=== PATIENT | male | born 1995 | race Caucasian/White ===

== ENCOUNTER → 2025-05-04 | Outpatient (CLI) | payer BC, SELFPAY ==
[2025-05-04 15:51] LABS: Hematocrit 44.7 % (40-54); Hemoglobin 15.8 g/dL (13.0-16.5); Immature Granulocytes Count 0.040 X10^3/uL (0.0-0.0); Mean Corp Hgb Conc 35.3 g/dL (32-36); Mean Corpuscular Volume 87.1 fL (80-94); Mean Platelet Vol. 10.2 fl (6.2-12.0); NRBC Flagged by Analyzer 0 % (0-5); Platelet Count 207 K/mm3 (150-450); RBC Distribution Width CV 11.9 % (11.6-14.6); RBC Distribution Width SD 38.3 fl (35.1-43.9); Red Blood Count 5.13 M/mm3 (4.6-6.2); White Blood Count 7.6 K/mm3 (4.4-11.0)
[2025-05-04 16:53] LABS: AST(SGOT) 40 U/L (<=37); Alanine Aminotransfer ALT/SGPT 78 U/L (<=46); Albumin, Serum 4.8 g/dL (3.5-5.0); Alkaline Phosphatase 81 U/L (40-129); Anion Gap 15 (5-15); BUN 15 mg/dL (4-19); BUN/Creat Ratio 17.4 RATIO (10-20); Calcium,Total 9.7 mg/dL (7.6-11.0); Carbon Dioxide 23.6 mmol/L (21.0-32.0); Chloride 99 mmol/L (98-108); Globulin 2.8 g/dL (2.2-4.2); Glucose 99 mg/dL (70-99); Potassium 3.3 mmol/L (3.3-5.1); Vitamin D,25 Hydroxy 23.7 ng/mL (30-100)
[2025-05-08 14:49] LABS: CORTISOL PM 15.70 ug/dL (2.68-10.50)
== END | disposition home or self-care (01) ==
LOC: MTLAB 12:47
PROVIDERS: PCP Family Medicine; Referring Provider Family Medicine; Visit Provider Family Medicine
DX: R53.83 Other fatigue (principal)
CPT/HCPCS: 36415; 80053; 81050; 82306; 82530; 82533; 84443; 85025

== ENCOUNTER 2025-08-09 00:31 | Emergency (ER) | payer BC, SELFPAY ==
[2025-08-09 00:33] VITALS: BP 154/90; PULSE 100; RESP 18; TEMP 36.9; O2SAT 98; BMI 19.5
--- NOTE | 2025-08-09 00:56 | EDS_ITS ---
HPI History of Present Illness Chief Complaint: Mental Health Informant: patient and spouse/S.O. Narrative Narrative: Patient is a 29-year-old male who states he has struggled with depression and anxiety. He states he has recently been going to counseling and has been learning and practicing methods to help control his symptoms. This evening he reportedly got into an argument with his and [id number]. His states that she is used to him being aggressive and angry and now he is more calm and collected and she states this is not his baseline. Because of this she wanted him evaluated in the ER. The patient states he is acting this way because he has now learned coping mechanisms and has been employing them. He denies any homicidal or suicidal ideation. He states he is mainly in the ER just to appease [facility] Home Medications ?Medication ?Instructions ?Recorded ?Last Taken ?Type NK 08/09/25 Unknown History Allergy/AdvReac Type Severity Reaction Status Date / Time No Known Allergies Allergy Verified 08/09/25 00:32 Family History (Updated 09/27/23 @ 11:23 by Gwen Peace) Father Arthritis Grandfather CVA (cerebral vascular accident) Heart disease Diabetes Grandmother Cancer Lung disease Surgical History (Updated 09/27/23 @ 11:32 by Gwen Peace) Ascended testicle History of tonsillectomy Social History (Updated 09/27/23 @ 11:24 by Gwen Peace) Smoking Status: Current every day smoker tobacco type: e-cigarettes alcohol intake: current alcohol intake frequency: holidays/special occasions only Alcohol type: hard liquor ROS ROS ED Constitutional Constitutional ED: Denies chills or fever(s) ENT ENT ED: Denies sore throat Cardiovascular Cardiovascular: Denies chest pain Respiratory/Chest Respiratory/Chest: Denies cough or dyspnea Gastrointestinal Gastrointestinal: Denies abdominal pain, diarrhea, nausea or vomiting Musculoskeletal Musculoskeletal: Denies myalgias Integumentary Denies rash Neurologic Neurologic: Denies headache(s) Psychiatric Psychiatric: Denies suicidal ideation or suicidal thoughts EXAM Physical Exam Const Vital Signs: 08/09/25 00:33 08/09/25 01:00 Temperature 98.5 F 98.5 F Temperature Source Oral Pulse Rate 100 90 Respiratory Rate 18 18 Blood Pressure 154/90 H 154/90 H Blood Pressure Mean 111 111 Pulse Ox 98 100 Oxygen Delivery Method Room Air Positive well nourished and well developed General Appearance ED: well developed; Negative for pallor HEENT HEENT Narrative: Normal cephalic atraumatic Eyes PERRL and EOMs intact bilaterally General Eye ED: Negative for scleral icterus Neck supple Resp normal respiratory effort and clear to auscultation bilaterally Cardio regular rate and regular rhythm Extremity normal to inspection Neuro oriented x3, CN's II-XII intact bilaterally and no sensory deficits noted Sensorium / Orientation: alert Motor Exam: strength 5/5 throughout Psych mental status grossly normal Psych Narrative: No homicidal or suicidal ideation No obvious signs of deisy or flight of ideas No auditory or visual hallucinations reported Skin no rashes or lesions noted General Skin Exam: Negative for jaundice or pallor MDM MDM MDM Narrative Medical decision making narrative: Patient arrived to the ER mildly hypertensive otherwise with stable vitals. He reported he is only in the ER to appease his . His states that she is used to him being more aggressive and angry and is concerned about his depressed or mellow affect at this time. The patient had reported he is this way because he is now learning to employ the coping mechanisms that he has learned through counseling. He states that he does not have homicidal or suicidal ideation. He also is well-groomed and showing that he is caring for himself in the community. At this time the patient is awake alert and oriented he is competent to make his own decisions he is not homicidal or suicidal and he is demonstrating that he is caring for himself in the community and providing as he has a stable job. Based on these observations and the fact that he does not want evaluation I cannot perform any type of further workup or for psychiatric evaluation of him at this time. I feel he does not warrant psychiatric evaluation either as he is not homicidal or suicidal or showing signs of deisy. The patient was advised to continue his outpatient counseling therapy and keep employing his coping mechanisms as they seem to be working as he was able to de-escalate from a stressful situation earlier this evening. Therefore without need for psychiatric valuation and history and exam showing no sign of potential infection or trauma he is otherwise safe for discharge History & Record Review Discussion w/independent historian: Patient and Significant other Discharge Plan Triage Chief Complaint: Mental Health ED Provider: Benjamin Tuttle Dx/Rx/DC Orders Clinical Impression: Mood disorder Instructions: Understanding Mood Disorders Prescriptions: No Action NK Primary Care Provider: Rocky Taylor Referrals: Rocky Taylor MD [Primary Care Provider, Family Practice] Activity Restrictions/Additional Instructions: Please continue to follow-up with your therapist as an outpatient and continue to perform your therapy techniques to help calm bouts of anxiety and depression. Return to the ER should you have any further concerns Print Language: Citizen Of [place] Disposition Disposition: Home, Self Care Discharge Date/Time: 08/09/25 01:06
[2025-08-09 01:00] VITALS: BP 154/90; PULSE 90; RESP 18; TEMP 36.9; O2SAT 100
== END 2025-08-09 01:06 | disposition home or self-care (01) ==
LOC: ED 01:03
PROVIDERS: Emergency Provider Emergency Medicine; PCP Family Medicine; Visit Provider Emergency Medicine
DX: F39 Unspecified mood [affective] disorder (principal); F17.290 Nicotine dependence, other tobacco product, uncomplicated
CPT/HCPCS: 99282; A4216

== ENCOUNTER 2025-08-11 14:18 | Emergency (ER) | payer BC, SELFPAY ==
[2025-08-11 14:18] VITALS: BP 130/100; PULSE 71; RESP 20; TEMP 36.4; O2SAT 100; BMI 18.8
--- NOTE | 2025-08-11 14:42 | EX.ED.VIS.PS ---
HPI HPI - Psych History of Present Illness Chief Complaint: Suicidal Narrative Narrative: 29-year-old male presents pixel by police for suicidal ideation. It was reported that last night he was talking to a rock, thinking that it was his father. He has knives at home, and reportedly he stated that he would kill himself and use his knives if they were going to try and take them away. He states that his called EMS/the police today because of the way he was acting. He states that he started Seroquel last night to help him sleep. This was written by his primary care provider. He states that he wants to get his head straight for his family sake. He presents with reported psychosis and suicidal ideation. He does admit to smoking marijuana daily, and to vaping. PFSH PFSH Home Medications ?Medication ?Instructions ?Recorded ?Last Taken ?Type NK 08/09/25 Unknown History Allergy/AdvReac Type Severity Reaction Status Date / Time No Known Allergies Allergy Verified 08/11/25 14:18 Family History Father Arthritis Grandfather CVA (cerebral vascular accident) Heart disease Diabetes Grandmother Cancer Lung disease Surgical History Ascended testicle History of tonsillectomy Social History (Updated 08/11/25 @ 15:11 by Gena Cardenas) household members: spouse Smoking Status: Current every day smoker tobacco type: e-cigarettes alcohol intake: current alcohol intake frequency: holidays/special occasions only Alcohol type: hard liquor ROS ROS ED ROS Narrative Review of systems positive for psychosis. Reported suicidal ideation. Patient denies any somatic symptoms. Does endorse insomnia and unable to sleep. EXAM Physical Exam Narrative Exam Narrative: Afebrile. Vital signs noted. Nontoxic-appearing. Cardiovascular examination regular rate and rhythm. Lungs are clear to auscultation bilaterally. Abdomen is soft and nontender with positive bowel sounds. Currently cooperative. Psychiatric examination shows intermittent hostility with cursing but no current internal stimulation or active hallucinations. Const Vital Signs: 08/11/25 14:18 Temperature 97.5 F L Temperature Source Temporal Pulse Rate 71 Respiratory Rate 20 H Blood Pressure 130/100 H Blood Pressure Mean 110 Pulse Ox 100 Oxygen Delivery Method Room Air MDM MDM MDM Narrative Medical decision making narrative: No feel differential diagnosis is applicable in this case. He is here under her 72-hour hold for evaluation for suicidal ideation. 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 I reviewed his medical clearance labs and he has normal white count of 6.2 with hemoglobin 15.2, hematocrit 42.0, platelet count normal at 205. CMP is grossly unremarkable with normal LFTs. Ethyl alcohol is negative at less than 10.1. While his urine for drugs of abuse is pending, I feel it is probably most likely positive for cannabinoids as he admits to smoking marijuana every day. I feel he is medically cleared for evaluation by crisis/case management. I did review the urine for drugs of abuse which is presumptively positive for cannabinoids and amphetamines as well. At this point in time, he is medically cleared for evaluation for possible placement at a psychiatric facility. Patient did request medication for anxiety. He was administered Ativan 1 mg orally. I was informed by case management that he has been accepted at [facility] for Psychiatry. Disposition is transferred in stable condition. History & Record Review Discussion w/independent historian: Patient Additional record(s) reviewed:: Prior ED visit (Seen 2 days ago and had refused evaluation at that time.) Lab Data Attestation: I reviewed the patient's lab results. Labs: Laboratory Results - last 24 hr 08/11/25 08/11/25 14:44 16:28 WBC 6.2 RBC 4.94 Hgb 15.2 Hct 42.0 MCV 85.0 MCH 30.8 MCHC 36.2 H RDW Std Deviation 35.3 RDW Coeff of Soledad 11.4 L Plt Count 205 MPV 9.4 Immature Gran % (Auto) 0.200 Neut % (Auto) 55.6 Lymph % (Auto) 35.2 [place] % (Auto) 7.5 Eos % (Auto) 1.0 Baso % (Auto) 0.5 Absolute Neuts (auto) 3.5 Absolute Lymphs (auto) 2.19 Nucleated RBC % 0 Sodium 139 Potassium 3.7 Chloride 103 Carbon Dioxide 26.3 Anion Gap 10 BUN 12 Creatinine 0.97 Estim Creat Clear Calc 81.85 Est GFR (MDRD) Non-Af 109 BUN/Creatinine Ratio 12.0 Glucose 92 Calcium 9.0 Total Bilirubin 0.64 AST 28 ALT 31 Alkaline Phosphatase 75 Total Protein 6.8 Albumin 4.4 Globulin 2.3 Albumin/Globulin Ratio 1.9 Urine Opiates Screen NEGATIVE U Buprenorphine Qual NEGATIVE Ur Oxycodone Screen NEGATIVE Urine Methadone Screen NEGATIVE Urine Fentanyl Screen NEGATIVE Ur Barbiturates Screen NEGATIVE Ur Phencyclidine Scrn NEGATIVE Ur Amphetamines Screen PRESUMPTIVE POSITIVE U Benzodiazepines Scrn NEGATIVE Urine Cocaine Screen NEGATIVE U Cannabinoids Screen PRESUMPTIVE POSITIVE Ethyl Alcohol < 10.1 Discharge Plan Triage Chief Complaint: Suicidal ED Provider: Willis Rosado Dx/Rx/DC Orders Clinical Impression: Psychosis, Suicidal ideation, Anxiety Prescriptions: No Action NK Primary Care Provider: Rocky Taylor Referrals: Rocky Taylor MD [Primary Care Provider, Family Practice] Print Language: Burundian Disposition Disposition: Psychiatric Hospital or Unit Discharge Location: [facility]
[2025-08-11 15:16] LABS: Hematocrit 42.0 % (40-54); Hemoglobin 15.2 g/dL (13.0-16.5); Immature Granulocytes Count 0.010 X10^3/uL (0.0-0.0); Mean Corp Hgb Conc 36.2 g/dL (32-36); Mean Corpuscular Volume 85.0 fL (80-94); Mean Platelet Vol. 9.4 fl (6.2-12.0); NRBC Flagged by Analyzer 0 % (0-5); Platelet Count 205 K/mm3 (150-450); RBC Distribution Width CV 11.4 % (11.6-14.6); RBC Distribution Width SD 35.3 fl (35.1-43.9); Red Blood Count 4.94 M/mm3 (4.6-6.2); White Blood Count 6.2 K/mm3 (4.4-11.0)
[2025-08-11 15:56] LABS: AST(SGOT) 28 U/L (<=37); Alanine Aminotransfer ALT/SGPT 31 U/L (<=46); Albumin, Serum 4.4 g/dL (3.5-5.0); Alcohol, Blood (Medical)-Serum < 10.1 mg/dL (<=10.0); Alkaline Phosphatase 75 U/L (40-129); Anion Gap 10 (5-15); BUN 12 mg/dL (4-19); BUN/Creat Ratio 12.0 RATIO (10-20); Calcium,Total 9.0 mg/dL (7.6-11.0); Carbon Dioxide 26.3 mmol/L (21.0-32.0); Chloride 103 mmol/L (98-108); Estimated Creatinine Clearance 81.85 ml/min (50-250); Globulin 2.3 g/dL (2.2-4.2); Glucose 92 mg/dL (70-99); Potassium 3.7 mmol/L (3.3-5.1)
[2025-08-11] MEDS: Nicotine 4mg Gum (PBKC) 4 MG GUM PO (16:05)
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
[2025-08-11 17:03] LABS: Barbiturate Urine NEGATIVE (< 200 ng/mL); Benzodiazepine Urine NEGATIVE (< 200 ng/mL); PCP Urine NEGATIVE (< 25 ng/mL); THC Urine PRESUMPTIVE POSITIVE (< 50 ng/mL)
--- NOTE | 2025-08-11 19:14 | CM.ED ---
Social Work SW contacted [facility], stated male bed was available. Referral sent. Patient was declined, [facility] stated that patient did not have valid insurance. explained that [facility] was able to verify insurance, [facility] continued to decline stating they could not get insurance to validate. [facility] contacted, male bed available, referral sent. Mary Jane Muir, SHIP JOINER, CLINICAL QUALITY ASSURANCE ASSOCIATE
--- NOTE | 2025-08-11 19:33 | PCA ---
PT ACCEPTED AT [facility]. CALLED TO SET UP 20/05 PSYCH CAR RIDE. WILL CALL BACK
[2025-08-11 21:35] VITALS: BP 115/54; PULSE 83; RESP 16; O2SAT 100
--- NOTE | 2025-08-11 21:46 | CM.ED ---
Social Work Patient was accepted at [facility], will be going to the intensive unit. Patient was admitted by Johnna, N2N [phone]. updated on accepting facility and transportation time. Patient sleeping at this time and not able to be updated. Mary Jane Muir, PACKAGING DESIGN ENGINEER, MONKEY BREEDER
[2025-08-11 22:13] VITALS: BP 115/54; PULSE 83; RESP 16; TEMP 36.8; O2SAT 100
== END 2025-08-11 23:22 ==
PROVIDERS: Emergency Provider Emergency Medicine; PCP Family Medicine; Visit Provider Emergency Medicine
DX: F29 Unspecified psychosis not due to a substance or known physiological condition (principal); R45.851 Suicidal ideations; F41.9 Anxiety disorder, unspecified; F17.290 Nicotine dependence, other tobacco product, uncomplicated
CPT/HCPCS: 80053; 80307; 82077; 85025; 99284

== ENCOUNTER 2025-08-23 18:41 | Emergency (ER) | payer BC, SELFPAY ==
[2025-08-23 18:43] VITALS: BP 150/89; PULSE 100; RESP 16; TEMP 36.8; O2SAT 100; BMI 19.9
--- NOTE | 2025-08-23 19:45 | EX.ED.VIS.PS ---
HPI HPI - Psych History of Present Illness Chief Complaint: Mental Health Narrative Narrative: 29-year-old male presents with his because of psychosis. She states that she took him to the crisis center today, and they drove him here for medical clearance as they felt he needed psychiatric admission for medication adjustment. Patient states that he is trying to get better, but he is frustrated because he feels the only time that he can be out of his 's site is if he is admitted to a psychiatric facility. He denies any suicidal ideation. He told triage that he needed his medication adjusted. PFSH PFSH Home Medications ?Medication ?Instructions ?Recorded ?Last Taken ?Type bupropion HCl 150 mg 24 hr tablet, 150 mg PO DAILY 08/23/25 08/23/25 History extended release quetiapine 25 mg tablet 25 mg PO QHS 08/23/25 08/22/25 History zolpidem 5 mg tablet 5 mg PO QHS 08/23/25 08/22/25 History Allergy/AdvReac Type Severity Reaction Status Date / Time No Known Allergies Allergy Verified 08/23/25 18:43 Family History Father Arthritis Grandfather CVA (cerebral vascular accident) Heart disease Diabetes Grandmother Cancer Lung disease Surgical History Ascended testicle History of tonsillectomy Social History household members: spouse Smoking Status: Current every day smoker tobacco type: e-cigarettes alcohol intake: current alcohol intake frequency: holidays/special occasions only Alcohol type: hard liquor ROS ROS ED ROS Narrative Denies suicidal ideation. States he is here for his psychosis. Review of Systems ROS Unobtainable: due to mental condition EXAM Physical Exam Narrative Exam Narrative: Afebrile. Vital signs noted. Nontoxic-appearing. Cardiovascular examination regular rate and rhythm. Lungs are clear to auscultation bilaterally. Abdomen is soft and nontender with positive bowel sounds. Neurological examination nonfocal nonlateralizing. Psychiatric examination does show mild flight of ideas with patient being mildly tangential. Const Vital Signs: 08/23/25 18:43 Temperature 98.3 F Temperature Source Oral Pulse Rate 100 Respiratory Rate 16 Blood Pressure 150/89 H Blood Pressure Mean 109 Pulse Ox 100 Oxygen Delivery Method Room Air MDM MDM MDM Narrative Medical decision making narrative: I do not feel differential diagnosis is applicable. Patient is here for medical clearance for psychiatric placement according to the crisis center. Medical screening labs were obtained. I did review his prior ED visits. He had been seen on 08/09/2025, then again by myself on 1014. As he had been discharged previously then sent to [facility] for psychiatry, medical clearance labs will be obtained for placement again or at least reevaluation by the crisis center. I reviewed his laboratory work and he has normal white count of 6.7, hemoglobin normal at 15.3, hematocrit 42.5, platelet count normal at 194. Glucose slightly elevated 110 with a normal anion gap of 11, sodium and potassium are normal. LFT shows ALT slightly elevated at 67 which I think is nonspecific. Ethanol level is negative. Urine for drugs of abuse is negative as well. Patient starting to have anxiety according to his . He is acceptable to taking oral medication. While I feel he is medically cleared for evaluation by crisis, they had already evaluated him and were recommending placement and sent him in for medical clearance labs. He was given Ativan 1 mg orally. He is currently awaiting placement in a psychiatric facility. In discussion with the crisis counselor, it was felt that he should not be allowed to be discharged as he has made violent threats against his , and is having increased psychosis with religiosity stating that he has 10 blessings that he wanted to but still up on her. Patient will be signed out to the oncoming physician, Dr. Benjamin Tuttle to ensure transfer as he has been accepted at [facility]. Patient is in stable condition. History & Record Review Discussion w/independent historian: Patient and Family () Additional record(s) reviewed:: Prior ED visit Lab Data Attestation: I reviewed the patient's lab results. Labs: Laboratory Results - last 24 hr 08/23/25 08/23/25 19:46 20:20 WBC 6.7 RBC 4.94 Hgb 15.3 Hct 42.5 MCV 86.0 MCH 31.0 MCHC 36.0 RDW Std Deviation 36.3 RDW Coeff of Soledad 11.7 Plt Count 194 MPV 9.7 Immature Gran % (Auto) 0.700 Neut % (Auto) 69.6 Lymph % (Auto) 20.8 [place] % (Auto) 8.1 Eos % (Auto) 0.4 Baso % (Auto) 0.4 Absolute Neuts (auto) 4.6 Absolute Lymphs (auto) 1.39 Nucleated RBC % 0 Sodium 139 Potassium 3.8 Chloride 102 Carbon Dioxide 26.7 Anion Gap 11 BUN 7 Creatinine 0.83 Estim Creat Clear Calc 100.93 Est GFR (MDRD) Non-Af 122 BUN/Creatinine Ratio 9.0 L Glucose 110 H Calcium 9.3 Total Bilirubin 0.28 AST 35 ALT 67 H Alkaline Phosphatase 78 Total Protein 7.0 Albumin 4.5 Globulin 2.4 Albumin/Globulin Ratio 1.9 Urine Opiates Screen NEGATIVE U Buprenorphine Qual NEGATIVE Ur Oxycodone Screen NEGATIVE Urine Methadone Screen NEGATIVE Urine Fentanyl Screen NEGATIVE Ur Barbiturates Screen NEGATIVE Ur Phencyclidine Scrn NEGATIVE Ur Amphetamines Screen NEGATIVE U Benzodiazepines Scrn NEGATIVE Urine Cocaine Screen NEGATIVE U Cannabinoids Screen PRESUMPTIVE POSITIVE Ethyl Alcohol < 10.1 Discharge Plan Triage Chief Complaint: Mental Health ED Provider: Willis Rosado Dx/Rx/DC Orders Clinical Impression: Psychosis, Anxiety Prescriptions: No Action bupropion HCl 150 mg tablet extended release 24 hr 150 mg PO DAILY zolpidem 5 mg tablet 5 mg PO QHS quetiapine 25 mg tablet 25 mg PO QHS Primary Care Provider: Rocky Taylor Referrals: Rocky Taylor MD [Primary Care Provider, Family Practice] Print Language: Georgian Disposition Disposition: Psychiatric Hospital or Unit Discharge Location: [facility]
[2025-08-23 20:03] LABS: Hematocrit 42.5 % (40-54); Hemoglobin 15.3 g/dL (13.0-16.5); Immature Granulocytes Count 0.050 X10^3/uL (0.0-0.0); Mean Corp Hgb Conc 36.0 g/dL (32-36); Mean Corpuscular Volume 86.0 fL (80-94); Mean Platelet Vol. 9.7 fl (6.2-12.0); NRBC Flagged by Analyzer 0 % (0-5); Platelet Count 194 K/mm3 (150-450); RBC Distribution Width CV 11.7 % (11.6-14.6); RBC Distribution Width SD 36.3 fl (35.1-43.9); Red Blood Count 4.94 M/mm3 (4.6-6.2); White Blood Count 6.7 K/mm3 (4.4-11.0)
[2025-08-23 20:32] LABS: Alcohol, Blood (Medical)-Serum < 10.1 mg/dL (<=10.0)
[2025-08-23 20:34] LABS: AST(SGOT) 35 U/L (<=37); Alanine Aminotransfer ALT/SGPT 67 U/L (<=46); Albumin, Serum 4.5 g/dL (3.5-5.0); Alkaline Phosphatase 78 U/L (40-129); Anion Gap 11 (5-15); BUN 7 mg/dL (4-19); BUN/Creat Ratio 9.0 RATIO (10-20); Calcium,Total 9.3 mg/dL (7.6-11.0); Carbon Dioxide 26.7 mmol/L (21.0-32.0); Chloride 102 mmol/L (98-108); Estimated Creatinine Clearance 100.93 ml/min (50-250); Globulin 2.4 g/dL (2.2-4.2); Glucose 110 mg/dL (70-99); Potassium 3.8 mmol/L (3.3-5.1)
[2025-08-23 20:59] LABS: Barbiturate Urine NEGATIVE (< 200 ng/mL); Benzodiazepine Urine NEGATIVE (< 200 ng/mL); PCP Urine NEGATIVE (< 25 ng/mL); THC Urine PRESUMPTIVE POSITIVE (< 50 ng/mL)
--- NOTE | 2025-08-23 21:31 | PCA ---
Addendum entered by Marion Wang 08/24/25 03:14: CALLED [facility] AT 0310 FOR ETA AND WAS TOLD BY MICHELA [phone] Addendum entered by Marion Wang 08/24/25 02:21: CALLED [facility] AT 0220 AFTER RECIEVING A 0215 ETA, NANCIE SAID THEY WERE 84 MINUTES AWAY Addendum entered by Marion Wang 08/23/25 22:55: FACED OVER ECHART, LABS, AND FACESHEET TO [facility] PER [facility] REQUEST AT 2255 Original Note: FAXED OVER TOXICOLOGY AND FACESHEET TO CRISIS
[2025-08-24 01:31] VITALS: BP 124/79; PULSE 85; RESP 18; O2SAT 97
--- NOTE | 2025-08-24 01:40 | ED.RN ---
attempted to call report x2 without answer.
[2025-08-24 02:19] VITALS: BP 124/79; PULSE 85; RESP 18; TEMP 36.6; O2SAT 97
== END 2025-08-24 03:45 ==
PROVIDERS: Emergency Provider Emergency Medicine; PCP Family Medicine; Visit Provider Emergency Medicine
DX: F29 Unspecified psychosis not due to a substance or known physiological condition (principal); F41.9 Anxiety disorder, unspecified; F17.290 Nicotine dependence, other tobacco product, uncomplicated
CPT/HCPCS: 80053; 80307; 82077; 85025; 99283